=== PATIENT | female | born 1950 | race Native Hawaiian/Other Pacific Islander ===

== ENCOUNTER 2016-08-25 10:45 | Outpatient (CLI) | payer OTHER ==
[~2016-08-25 10:45] MED LIST: ASA LO-DOSE81 MG PO; CLARITIN10 MG PO; CLOP75TA2 PO; COZAAR25 MG PO; GABA300C2 PO; LIPITOR40 MG PO; LODRANE D1 CAP PO; LORCET 5-325 MG1 TAB PO
== END 2016-08-25 19:29 | disposition home or self-care (01) ==
LOC: MAMMO 10:45
DX: N63 Unspecified lump in breast (principal)
CPT/HCPCS: G0204-TC

== ENCOUNTER 2018-04-19 08:33 | Outpatient (CLI) | payer OTHER | END 2018-04-19 21:30 | disposition home or self-care (01) | LOC: RAD 08:33 → US 09:30 → RAD 21:30 | DX: Z12.31 Encounter for screening mammogram for malignant neoplasm of breast (principal); Z13.820 Encounter for screening for osteoporosis; R05 Cough; R09.89 Other specified symptoms and signs involving the circulatory and respiratory systems; Z78.0 Asymptomatic menopausal state ==

== ENCOUNTER 2019-05-02 09:05 | Outpatient (CLI) | payer OTHER ==
[2019-05-02 10:10] LABS: PLATELET COUNT 238 K/uL (152-353)
[2019-05-02 10:24] LABS: POTASSIUM 5.1 mmol/L (3.6-5.2)
== END 2019-05-02 20:27 | disposition home or self-care (01) ==
LOC: LABW 09:05
PROVIDERS: Nurse Practitioner
DX: R53.82 Chronic fatigue, unspecified (principal); N28.89 Other specified disorders of kidney and ureter; E78.00 Pure hypercholesterolemia, unspecified; R73.9 Hyperglycemia, unspecified; E55.9 Vitamin D deficiency, unspecified; E53.8 Deficiency of other specified B group vitamins
CPT/HCPCS: 36415; 80053; 80061; 82306; 82607; 83036; 84443; 85027

== ENCOUNTER 2019-05-16 08:52 | Outpatient (CLI) | payer OTHER | END 2019-05-16 22:53 | disposition home or self-care (01) | LOC: MAMMO 08:52 | DX: Z12.31 Encounter for screening mammogram for malignant neoplasm of breast (principal) ==

== ENCOUNTER 2020-08-05 12:00 | Outpatient (CLI) | payer OTHER | END 2020-08-05 22:57 | disposition home or self-care (01) | LOC: CT 12:00 → LABW 12:00 → CT 22:57 | PROVIDERS: ATTEND Nurse Practitioner Family | DX: R10.13 Epigastric pain (principal); R10.11 Right upper quadrant pain | CPT/HCPCS: 36415; 82565; 84520 ==

== ENCOUNTER 2021-04-21 10:15 | Outpatient (CLI) | payer OTHER ==
[2021-04-21 10:40] LABS: PLATELET COUNT 201 K/uL (152-353)
[2021-04-21 11:03] LABS: POTASSIUM 5.2 mmol/L (3.6-5.2)
== END 2021-04-21 19:03 | disposition home or self-care (01) ==
LOC: LABW 10:15
PROVIDERS: ATTEND Internal Medicine
DX: E11.22 Type 2 diabetes mellitus with diabetic chronic kidney disease (principal); N18.32 Chronic kidney disease, stage 3b; R53.83 Other fatigue; E53.8 Deficiency of other specified B group vitamins
CPT/HCPCS: 36415; 80053; 82306; 82330; 82607; 82728; 82746; 83036; 83540; 83550; 83735; 83970; 84100; 84439; 84443; 85027; 85652; 86038

== ENCOUNTER 2022-08-06 11:23 | Emergency (ER) | payer OTHER ==
[~2022-08-06] VITALS: Ht 149.9 cm; Wt 68.0 kg
[2022-08-06 11:23] VITALS: TEMP 98.3
[2022-08-06 11:40] LABS: PLATELET COUNT 192 K/uL (152-353)
[2022-08-06 11:48] LABS: POTASSIUM 4.8 mmol/L (3.6-5.2)
[2022-08-06 15:38] VITALS: BP 138/58
== END 2022-08-06 15:55 | disposition left against medical advice (07) ==
LOC: ED 11:23
PROVIDERS: Internal Medicine
DX: M25.512 Pain in left shoulder (principal); Z53.29 Procedure and treatment not carried out because of patient's decision for other reasons
CPT/HCPCS: 80053; 84484; 85027; 93005; 99284

== ENCOUNTER 2022-08-18 16:11 | Outpatient (CLI) | payer OTHER | END 2022-08-18 19:36 | disposition home or self-care (01) | LOC: EDBD 16:11 → RAD 16:11 | PROVIDERS: ATTEND Nurse Practitioner Family | DX: M25.512 Pain in left shoulder (principal) ==

== ENCOUNTER 2023-01-14 13:12 | Outpatient (CLI) | payer OTHER ==
[2023-01-14 13:38] LABS: PLATELET COUNT 195 K/uL (152-353)
[2023-01-14 13:41] LABS: POTASSIUM 5.2 mmol/L (3.6-5.2)
== END 2023-01-14 19:26 | disposition home or self-care (01) ==
LOC: LABW 13:12
PROVIDERS: ATTEND Nurse Practitioner
DX: I10 Essential (primary) hypertension (principal); I25.10 Atherosclerotic heart disease of native coronary artery without angina pectoris
CPT/HCPCS: 36415; 80048; 85027